=== PATIENT | female | born 2000 | race Caucasian/White ===

== ENCOUNTER 2025-05-25 04:05 | Emergency (ER) | payer SELFPAY ==
[2025-05-25] MEDS ORDERED: Ondansetron Hydrochloride 4 MG TAB SL ONE (04:50)
[2025-05-25] MEDS ORDERED: Acetaminophen/Hydrocodone ES 7.5/325 tablet PO ONE (04:50)
[2025-05-25] MEDS ORDERED: HYDROCODONE-AC1 EAC1 PO (06:32)
== END 2025-05-25 07:03 | disposition home or self-care (01) ==
LOC: ED 04:05
DX: S00.03XA Contusion of scalp, initial encounter (principal); M25.531 Pain in right wrist; F17.200 Nicotine dependence, unspecified, uncomplicated; Z79.899 Other long term (current) drug therapy; Z90.49 Acquired absence of other specified parts of digestive tract; Y08.09XA Assault by strike by other specified type of sport equipment, initial encounter; Y93.64 Activity, baseball; Y92.89 Other specified places as the place of occurrence of the external cause; Y99.8 Other external cause status